=== PATIENT | male | born 1970 | race Caucasian/White ===

== ENCOUNTER 2017-11-23 10:13 | Emergency (ER) | payer BC ==
[~2017-11-23] VITALS: Ht 188 cm; Wt 98.0 kg
[2017-11-23 10:19] VITALS: TEMP 37; Ht 188 cm; Wt 98.0 kg
[2017-11-23] MEDS ORDERED: ONDANSETRON INJ 2 MG/ML 2 ML VIAL IV STA (10:59)
[2017-11-23] MEDS ORDERED: SODIUM CHLORIDE 0.9% 1000ML 1,000 ML IV STA (10:59)
[2017-11-23 11:21] LABS: BASO % 0.2 %; BASO ABS # 0.01 K/uL (0-0.2); EOS % 2.9 %; EOS ABS # 0.15 K/uL (0-0.5); HEMATOCRIT 43.1 % (42-52); HEMOGLOBIN 15.1 g/dL (14.0-18.0); IG# 0.01 K/uL (0.00-0.02); LYMPH % 23.8 %; LYMPH ABS # 1.21 K/uL (1.2-3.4); MEAN CELL VOLUME 90.2 fL (80-100); MEAN CORPUSCULAR HEMOGLOBIN 31.6 pg (25-34); MEAN PLATELET VOLUME 9.6 fL (7.4-10.4); MONO % 4.7 %; MONO ABS # 0.24 K/uL (0.11-0.59); NEUT % 68.2 %; NEUT ABS # 3.47 K/uL (1.4-6.5); PLATELET COUNT 159 K/uL (130-400); RED CELL DISTRIBUTION WIDTH SD 42.5 fL (36.4-46.3); WHITE BLOOD COUNT 5.09 K/uL (4.8-10.8)
[2017-11-23 11:28] LABS: ALBUMIN 4.2 gm/dl (3.4-5.0); CALCIUM 8.5 mg/dl (8.5-10.1); CREATININE 1.26 mg/dl (0.60-1.40); POTASSIUM 3.7 mmol/L (3.5-5.1)
[2017-11-23 11:31] LABS: TOTAL PROTEIN 7.3 gm/dl (6.4-8.2)
--- NOTE | 2017-11-23 14:14 | DIAGNOSTIC IMAGING REPORT ---
ABDOMINAL ULTRASOUND, RIGHT UPPER QUADRANT HISTORY: Generalized abdominal pain.. COMPARISON: None. FINDINGS: Pancreas: The pancreatic head is obscured by overlying bowel gas. The remaining portions of the pancreas are within normal limits. Liver: Unremarkable. Gallbladder: No gallbladder wall thickening. No gallstones. CBD: 5 mm. Right kidney: No hydronephrosis. IMPRESSION: No significant abnormality identified within the right upper quadrant. Electronically signed by: Tremayne Cantu M.D. 11/23/2017 2:13 PM Dictated Date/Time: 11/23/2017 2:11 PM
[2017-11-23] MEDS ORDERED: ONDA4TAB10 SL (14:44)
[2017-11-23 15:07] VITALS: BP 124/70; PULSE 72; O2SAT 98
--- NOTE | 2017-11-25 09:33 | EMERGENCY ROOM VISIT NOTE ---
ED Visit Note First contact with patient: 10:30 Chief Complaint: I have a knot on the right side of my abdomen. History of Present Illness: Mr. Patrick is a 47 year-old white male who ambulates into the ED complaining of right upper quadrant abdominal pain. Historically patient reports no significant gastrointestinal disorders or abdominal surgeries. Patient reports he has been having right upper quadrant pain off and on for 2 years. He reports he has discussed this with his primary care provider and they felt like his symptoms appear to be gallbladder disease. An ultrasound was performed and was negative. An ERCP was scheduled but needed to be canceled and reports a second 1 has been rescheduled for the near future. Patient reports for the last 3-4 days he has been having severe right upper quadrant abdominal pain. He describes it as a knot sensation. Intermittently the pain is been radiating into his back. He rates his discomfort 2/10. He reports pain worsens after eating. He has not identified any alleviating factors related to the pain. He has not taken any medications for pain prior to arrival at the hospital. Associated with his pain he does have nausea but has had no episodes of vomiting. Patient denies fevers, chills, sweats, skin eruptions, skin color changes, upper respiratory tract symptoms, shortness of breath, chest pain, diarrhea, constipation, rectal bleeding, black/tarry stools, urinary symptoms, hematuria. Review of Systems: As noted above in history of present illness. All body systems were reviewed and found to be negative as noted above. Past Medical History: As previously noted and status post bilateral inguinal hernia repair, pilonidal abscess I&D and unspecified sinus surgery. Current Medications: Patient denies. Allergies to Medications: Iodine. Social History: Patient reports she is currently employed; he lives by himself and feels safe in his home environment; he denies tobacco use and admits to social alcohol use. Physical Examination: Vital Signs: Date Time Temp Pulse Resp B/P (MAP) Pulse Ox O2 Delivery O2 Flow Rate FiO2 11/23/17 15:07 72 14 124/70 98 11/23/17 14:35 72 20 118/72 96 Room Air 11/23/17 12:30 71 18 119/79 95 Room Air 11/23/17 12:14 69 11/23/17 11:18 73 16 122/79 96 Room Air 11/23/17 10:19 37.0 94 18 135/86 98 Room Air GENERAL: 47-year-old male in mild to moderate distress due to pain, nontoxic- appearing, afebrile and hemodynamically stable. NEUROLOGICAL: Awake, alert and oriented to person, place and time. Answering questions appropriately and following commands. Normal gait. Good hand eye coordination. SKIN: Warm, dry and pink. No soft tissue eruptions or trauma noted. HEENT: Atraumatic and normocephalic. PERRL. Sclera white and conjunctiva pink. Oral cavity moist and pink. Pharynx is nonerythematous or edematous. Speech normal. No lymphadenopathy. Trachea midline. No jugular venous distention. BACK: No tenderness over the bony or paraspinous spine. No CVA tenderness. THORAX: Lungs sounds are clear to auscultation and equal bilaterally with symmetrical chest wall. No wheezing, rales or rhonchi. No crepitus, tenderness , subcutaneous air or deformities noted. HEART: Regular rate and rhythm. No gallops, rubs or murmurs are appreciated. ABDOMEN: Flat and soft with moderate tenderness in the epigastrium and right upper quadrant. Positive bowel sounds in all quadrants. No guarding, rigidity or organomegaly. EXTREMITIES: Moves all extremities well on command and with purpose. All distal neurovascular statuses are intact and equal bilaterally. ED Course: Patient is assessed as noted above. Patient's medication list was reviewed. Laboratory Testing: Test 11/23/17 10:35 11/23/17 14:30 Range/Units White Blood Count 5.09 4.8-10.8 K/uL Red Blood Count 4.78 4.7-6.1 M/uL Hemoglobin 15.1 14.0-18.0 g/dL Hematocrit 43.1 42-52 % Mean Corpuscular Volume 90.2 80-100 fL Mean Corpuscular Hemoglobin 31.6 25-34 pg Mean Corpuscular Hemoglobin Concent 35.0 32-36 g/dl Platelet Count 159 130-400 K/uL Mean Platelet Volume 9.6 7.4-10.4 fL Neutrophils (%) (Auto) 68.2 % Lymphocytes (%) (Auto) 23.8 % Monocytes (%) (Auto) 4.7 % Eosinophils (%) (Auto) 2.9 % Basophils (%) (Auto) 0.2 % Neutrophils # (Auto) 3.47 1.4-6.5 K/uL Lymphocytes # (Auto) 1.21 1.2-3.4 K/uL Monocytes # (Auto) 0.24 0.11-0.59 K/uL Eosinophils # (Auto) 0.15 0-0.5 K/uL Basophils # (Auto) 0.01 0-0.2 K/uL RDW Standard Deviation 42.5 36.4-46.3 fL RDW Coefficient of Variation 13.0 11.5-14.5 % Immature Granulocyte % (Auto) 0.2 % Immature Granulocyte # (Auto) 0.01 0.00-0.02 K/uL Sodium Level 138 136-145 mmol/L Potassium Level 3.7 3.5-5.1 mmol/L Chloride Level 107 98-107 mmol/L Carbon Dioxide Level 26 21-32 mmol/L Anion Gap 6.0 3-11 mmol/L Blood Urea Nitrogen 15 7-18 mg/dl Creatinine 1.26 0.60-1.40 mg/dl Est Creatinine Clear Calc Drug Dose 86.1 ml/min Estimated GFR () 79.3 Estimated GFR (Non- 68.4 BUN/Creatinine Ratio 11.9 10-20 Random Glucose 89 70-99 mg/dl Calcium Level 8.5 8.5-10.1 mg/dl Total Bilirubin 1.2 0.2-1 mg/dl Direct Bilirubin 0.2 0-0.2 mg/dl Aspartate Amino Transf (AST/SGOT) 25 15-37 U/L Alanine Aminotransferase (ALT/SGPT) 70 12-78 U/L Alkaline Phosphatase 71 45-117 U/L Total Protein 7.3 6.4-8.2 gm/dl Albumin 4.2 3.4-5.0 gm/dl Lipase 117 73-393 U/L Urine Color YELLOW Urine Appearance CLEAR CLEAR Urine pH 5.0 4.5-7.5 Urine Specific [place] 1.022 1.000-1.030 Urine Protein NEG NEG Urine Glucose (UA) NEG NEG Urine Ketones NEG NEG Urine Occult Blood NEG NEG Urine Nitrite NEG NEG Urine Bilirubin NEG NEG Urine Urobilinogen NEG NEG Urine Leukocyte Esterase NEG NEG Gallbladder Ultrasound: Was reviewed by myself and read by the radiologist showing no significant abnormalities identified within the right upper quadrant. Patient was hydrated with normal saline and received 4 mg of Zofran IV; patient was offered pain medications and refused. Patient was reassessed multiple times during his stay in the emergency department. Patient's case was reviewed with Dr. Dietrich; we agreed on diagnostic approach, treatment, disposition and plan. Patient was educated about today's findings and instructed on his treatment plan ; he verbalized understanding and agreement with this plan. Clinical Impression: Right upper quadrant abdominal pain. Decision-Making: Initially my differential diagnosis I considered cholelithiasis , hepatitis, pancreatitis, gastric reflux/esophagitis, kidney stone, pyelonephritis and other causes. Disposition: Patient discharged home in stable condition; prior to departure he was reassessed and subjectively reported he was feeling better and rated his discomfort 1/10 and reported resolution of nausea. Plan: Patient was encouraged you 650 mg of acetaminophen every 6 hours as needed for pain. Patient was prescribed 4 mg of Zofran 10 minutes before meals and as needed for nausea/vomiting. Patient was encouraged to stay well-hydrated with increased clear fluid and use a bland diet for the next 48 hours. Patient was encouraged to keep his upcoming appointment for his ERCP. Patient was encouraged return the ED for worsening/uncontrolled pain, uncontrolled nausea/vomiting, fevers or any new/concerning symptoms.
== END 2017-11-23 15:12 | disposition home or self-care (01) ==
LOC: C.EDB 10:16
DX: R10.11 Right upper quadrant pain (principal)